=== PATIENT | female | born 1985 | race Caucasian/White ===

== ENCOUNTER 2017-10-16 21:46 | Emergency (ER) | payer BC ==
[~2017-10-16] VITALS: Ht 152.4 cm; Wt 42.2 kg
[2017-10-16 21:47] VITALS: Ht 152.4 cm; Wt 42.2 kg
[2017-10-16 22:53] LABS: BASOPHIL % 0.3 % (0-2); PLATELET COUNT 152 x10^3mcL (130-400); RED CELL DISTRIBUTION WIDTH 13.6 % (11.5-14.5)
[2017-10-16 23:08] LABS: CALCIUM 9.2 mg/dL (8.5-10.1); CARBON DIOXIDE 25.9 mmol/L (21-32); CHLORIDE SERUM 100 mmol/L (98-107); CREATININE SERUM 0.8 mg/dL (0.6-1.0); GFR1 > 60 mL/min; GLUCOSE SERUM 124 mg/dL (74-106); POTASSIUM SERUM 3.4 mmol/L (3.5-5.1); SODIUM SERUM 136 mmol/L (136-145)
[2017-10-16 23:12] LABS: ALBUMIN 3.6 g/dL (3.4-5.0); ALKALINE PHOSPHATASE 59 U/L (46-116); ALT/SGPT 62 U/L (14-59); AST/SGOT 85 U/L (15-37); BILIRUBIN TOTAL 0.4 mg/dL (0.20-1.00); LIPASE 174 IU/L (73-393); TOTAL PROTEIN, SERUM 6.9 g/dL (6.4-8.2)
[2017-10-17 00:58] VITALS: BP 112/50
== END 2017-10-17 00:59 | disposition home or self-care (01) ==
LOC: ED 21:46
PROVIDERS: Emergency Medicine
DX: K29.70 Gastritis, unspecified, without bleeding (principal); Z88.0 Allergy status to penicillin
CPT/HCPCS: J1885; J2405; J7030; Q0092

== ENCOUNTER 2018-04-01 14:01 | Emergency (ER) | payer SELFPAY ==
[~2018-04-01] VITALS: Ht 152.4 cm; Wt 45.5 kg
[2018-04-01 14:07] VITALS: Ht 152.4 cm; Wt 45.5 kg
[2018-04-01 16:02] LABS: microscopic required? YES; urine erythrocyte 3+ (NEGATIVE)
[2018-04-01 16:02] LABS: BASOPHIL % 0.3 % (0-2); PLATELET COUNT 200 x10^3mcL (130-400); RED CELL DISTRIBUTION WIDTH 13.9 % (11.5-14.5)
[2018-04-01 17:12] VITALS: BP 125/69
== END 2018-04-01 18:08 | disposition home or self-care (01) ==
LOC: ED 14:01
PROVIDERS: Emergency Medicine
DX: O20.0 Threatened abortion (principal); O98.811 Other maternal infectious and parasitic diseases complicating pregnancy, first trimester
CPT/HCPCS: 36415